=== PATIENT | female | born 1995 | race Caucasian/White ===

== ENCOUNTER 2020-10-29 14:13 | Emergency (ER) | payer OTHER, SELFPAY ==
--- NOTE | ~2020-10-29 | US_ITS ---
EXAMINATION: PELVIC ULTRASOUND CLINICAL INFORMATION: Pelvic pain with question of ovarian torsion COMPARISON: Prior pelvic ultrasound 08/11/2019 TECHNIQUE: Both transabdominal and endovaginal scanning was performed. Color-flow Doppler imaging was also utilized. FINDINGS: An anteverted uterus is present measuring 8.8 x 4.5 x 5 0.7 mL 4 a volume of 118 mL. The uterus appeared normal. The endometrium was 6 mm thick. The cervix measured 2.9 cm in length and nabothian cysts were again seen. Both ovaries appeared normal with normal arterial and venous flow bilaterally. The right measures 4.5 x 2.1 x 2.1 cm for a volume of 10.4 mL and the left measured 4.1 x 2.4 x 3.1 cm for a volume of 16.0 mL. No free fluid was present in the cul-de-sac. US/US pelvic complete IMPRESSION: Negative exam. No evidence of ovarian torsion.
--- NOTE | ~2020-10-29 | US_ITS ---
EXAMINATION: PELVIC ULTRASOUND CLINICAL INFORMATION: Pelvic pain with question of ovarian torsion COMPARISON: Prior pelvic ultrasound 08/11/2019 TECHNIQUE: Both transabdominal and endovaginal scanning was performed. Color-flow Doppler imaging was also utilized. FINDINGS: An anteverted uterus is present measuring 8.8 x 4.5 x 5 0.7 mL 4 a volume of 118 mL. The uterus appeared normal. The endometrium was 6 mm thick. The cervix measured 2.9 cm in length and nabothian cysts were again seen. Both ovaries appeared normal with normal arterial and venous flow bilaterally. The right measures 4.5 x 2.1 x 2.1 cm for a volume of 10.4 mL and the left measured 4.1 x 2.4 x 3.1 cm for a volume of 16.0 mL. No free fluid was present in the cul-de-sac. US/US transvaginal IMPRESSION: Negative exam. No evidence of ovarian torsion.
--- NOTE | ~2020-10-29 | US_ITS ---
EXAMINATION: PELVIC ULTRASOUND CLINICAL INFORMATION: Pelvic pain with question of ovarian torsion COMPARISON: Prior pelvic ultrasound 08/11/2019 TECHNIQUE: Both transabdominal and endovaginal scanning was performed. Color-flow Doppler imaging was also utilized. FINDINGS: An anteverted uterus is present measuring 8.8 x 4.5 x 5 0.7 mL 4 a volume of 118 mL. The uterus appeared normal. The endometrium was 6 mm thick. The cervix measured 2.9 cm in length and nabothian cysts were again seen. Both ovaries appeared normal with normal arterial and venous flow bilaterally. The right measures 4.5 x 2.1 x 2.1 cm for a volume of 10.4 mL and the left measured 4.1 x 2.4 x 3.1 cm for a volume of 16.0 mL. No free fluid was present in the cul-de-sac. US/US pelvic ovarian doppler IMPRESSION: Negative exam. No evidence of ovarian torsion.
[2020-10-29 14:23] VITALS: BP 104/66; PULSE 83; RESP 18; TEMP 36.8; O2SAT 100; BMI 30.8
--- NOTE | 2020-10-29 14:52 | ED_ITS ---
HPI - Abdominal Pain General Chief Complaint: Abdominal Pain Stated Complaint: low abd pain Time Seen by Provider: 10/29/20 14:41 Source: patient Mode of arrival: ambulatory Limitations: no limitations History of Present Illness HPI narrative: Patient presents to ED for suprapubic pain. Patient states she did not have a menstruation for 6 months then lastly she started having some vaginal bleeding with lower abdominal/suprapubic pain. Patient states vaginal bleeding resolved but she still having the lower abdominal/more suprapubic pain/pelvic pain. Patient denies any nausea, vomiting, flank pain, fever, chi lls, or any upper abdominal pain. Related Data Home Medications Medication Instructions Recorded Confirmed alprazolam 1 mg tablet 1 mg PO TID PRN 04/18/20 divalproex 500 mg tablet,delayed 500 mg PO ONCE tab 04/18/20 release quetiapine 100 mg tablet 100 mg PO DAILY 04/18/20 Previous Rx's Medication Instructions Recorded omeprazole 40 mg capsule,delayed 40 mg PO DAILY 30 Days #30 cap 08/01/20 release doxycycline hyclate 100 mg PO BID #14 tab 10/29/20 metronidazole 500 mg PO Q12H 7 Days #14 tab 10/29/20 Allergies Allergy/AdvReac Type Severity Reaction Status Date / Time No Known Allergies Allergy Verified 10/29/20 14:23 [No Known Allergies*] Review of Systems Review of Systems Yes all other systems are reviewed and are negative Constitutional: Reports as per HPI and Reports no additional constitutional complaints Eyes: Reports as per HPI and Reports no additional eye complaints Reports system reviewed and no additional complaints, except as documented and Reports as per HPI Cardiovascular: Reports as per HPI and Reports no additional cardiovascular complaints Respiratory: Reports as per HPI and Reports no additional respiratory complaints Gastrointestinal: Reports as per HPI, Reports no additional gastrointestinal complaints and Denies abdominal pain Genitourinary: Reports no additional female genitourinary complaints and Reports as per HPI Comments: Suprapubic Musculoskeletal: Reports no additional musculoskeletal complaints and Reports as per HPI Reports system reviewed and no additional complaints, except as documented and Reports as per HPI Psychiatric: Reports no additional psychiatric complaints and Reports as per HPI Physical Exam Vital Signs: Vital Signs: Last Vital Signs Temp 98.3 F 10/29/20 14:23 Pulse 83 10/29/20 14:23 Resp 18 10/29/20 14:23 BP 104/66 10/29/20 14:23 Pulse Ox 100 10/29/20 14:23 Body Mass Index 30.8 Const: General: cooperative, healthy appearing, comfortable, no acute distress, well developed, alert and awake Orientation/consciousness: patient oriented x3 HENMT: Head: Yes normal to inspection, Yes No palpable skull fracture present, Yes normocephalic, Yes atraumatic and No abrasion Eyes: General: appearance normal, both eyes and all related structures Neck: Neck: Yes normal visual inspection, Yes full ROM, Yes no lymphadenopathy, Yes no meningeal signs, Yes trachea midline, Yes supple and No tender Chest: Chest palpation & inspection: normal inspection of the chest and normal palpation of entire chest wall Resp: Effort & Inspection: normal respiratory effort and able to speak in complete sentences Auscultation: clear to auscultation bilaterally Cardio: Jugular venous distension: no JVD Heart sounds: S1 normal heart sound present and S2 normal heart sound present GI: Inspection: Yes normal to inspection and No abdominal wall ecchymosis Palpation (GI): Soft to palpation, not firm, Tenderness to palpation present (GI) suprapubicly; not in the LLQ, not in the RLQ, not in the LUQ, not in the RUQ, not at McBurney's point, not periumbilically, Coronado's sign negative, obturator sign negative, psoas sign negative, with no rebound tenderness, Rovsing's sign negative and no other, no guarding and not rigid : General: No CVA tenderness and Yes no CVA tenderness Back/Spine/Pelvis: Back: no CVA tenderness, No CVA tenderness and No back tenderness Skin: General skin exam: no rashes or lesions noted and elasticity normal Neuro: General: patient oriented x3, no meningeal signs and CN's II-XI intact bilaterally Cranial nerves: Yes CN's II-XII intact bilaterally Extrem: General: Yes normal to inspection and Yes full ROM Psych: Appearance: grossly normal, well kempt and not disheveled Course Course Course Narrative: Patient will have labs. Most likely this is the pelvic situation. Not concerned for any abdominal etiologies. S was sent UA. Reevaluation(s) Reevaluation #1: Patient not . Urine shows Trichomonas. Patient waiting for ultrasound to rule out torsion/abscess. Will treat Trichomonas. Patient refused pelvic exam. Patient was informed exam to be done to swab for chlamydia and gonorrhea, but she refused. Will order chlamydia gonorrhea urine and treat patient empirically. Patient sent for ultrasound to rule out torsion/abscess. Case will be signed out to SHELDON Ponce MDM - Abdominal Pain MDM Narrative Medical decision making narrative: Pelvic pain. Trichomonas Lab Data Result diagrams: 10/29/20 15:07 10/29/20 15:07 Labs: Lab Results 10/29/20 10/29/20 10/29/20 Range/Units 15:07 15:07 15:07 WBC 8.4 (4.8-10.8) X10*3/uL RBC 4.42 (4.20-5.50) X10*6/uL Hgb 13.1 (12.0-16.0) g/dl Hct 39.6 (37-47) % MCV 89.6 (80-98) fL MCH 29.6 (27.0-33.0) pg MCHC 33.1 (31.0-35.0) g/dl RDW 13.3 (11.0-16.0) % Plt Count 288 (160-400) X10*3/uL MPV 8.5 L (9.4-12.3) fL Immature Gran % (Auto) 0.2 (0.0-0.4) % Neut % (Auto) 60.1 (45-73) % Lymph % (Auto) 33.7 (20-40) % [place] % (Auto) 5.0 (2-11) % Eos % (Auto) 0.6 (0-4) % Baso % (Auto) 0.4 (0-2) % Lymph # (Auto) 2.8 (1.2-4.9) X10*3/uL [place] # (Auto) 0.4 (0.1-1.2) X10*3/uL Eos # (Auto) 0.1 (0.0-0.4) X10*3/uL Baso # (Auto) 0.0 (0.0-0.2) X10*3/uL Abs Immat Gran (auto) 0.02 (0.00-0.03) X10*3/uL Absolute Neuts (auto) 5.1 (2.0-8.3) X10*3/uL Absolute Nucleated RBC 0.000 (0.0-0.012) X10*3/uL Nucleated RBC % (auto) 0.0 (0.0-0.2) /100WBC PT 12.9 (10.8-13.0) SEC INR 1.1 (0.9-1.1) APTT 32.4 (24.1-38.0) SEC Sodium 143 (135-145) mmol/L Potassium 3.9 (3.3-5.1) mmol/L Chloride 108 (96-108) mmol/L Carbon Dioxide 29 (22-29) mmol/L Anion Gap 10 L (12-20) BUN 13 (9-16) mg/dL Creatinine 0.77 (0.5-1.4) mg/dL Estim Creat Clear Calc 139.9 Estimated GFR > 60 Random Glucose 76 (60-115) mg/dL Calcium 9.5 (8.4-10.2) mg/dL Total Bilirubin 0.5 (0.0-1.0) mg/dL AST 14 (5-31) U/L ALT 20 (0-31) U/L Alkaline Phosphatase 93 (39-117) U/L Total Protein 7.2 (6.5-8.0) g/dL Albumin 4.4 (3.5-5.0) g/dL Beta HCG, Quant < 2 mIU/mL Urine Color Urine Appearance Urine pH (5.0-8.0) Ur Specific [place] (1.005-1.025) Urine Protein (NEG-TRACE) MG/DL Urine Glucose (UA) (NEG) MG/DL Urine Ketones (NEG) MG/DL Urine Blood (NEG) Urine Nitrite (NEG) Ur Leukocyte Esterase (NEG) Urine RBC (0) /HPF Urine WBC (0-4) /HPF Ur Squamous Epith Cells /LPF Urine Bacteria /LPF Urine Mucus /LPF Urine Trichomonas 10/29/20 Range/Units 15:16 WBC (4.8-10.8) X10*3/uL RBC (4.20-5.50) X10*6/uL Hgb (12.0-16.0) g/dl Hct (37-47) % MCV (80-98) fL MCH (27.0-33.0) pg MCHC (31.0-35.0) g/dl RDW (11.0-16.0) % Plt Count (160-400) X10*3/uL MPV (9.4-12.3) fL Immature Gran % (Auto) (0.0-0.4) % Neut % (Auto) (45-73) % Lymph % (Auto) (20-40) % [place] % (Auto) (2-11) % Eos % (Auto) (0-4) % Baso % (Auto) (0-2) % Lymph # (Auto) (1.2-4.9) X10*3/uL [place] # (Auto) (0.1-1.2) X10*3/uL Eos # (Auto) (0.0-0.4) X10*3/uL Baso # (Auto) (0.0-0.2) X10*3/uL Abs Immat Gran (auto) (0.00-0.03) X10*3/uL Absolute Neuts (auto) (2.0-8.3) X10*3/uL Absolute Nucleated RBC (0.0-0.012) X10*3/uL Nucleated RBC % (auto) (0.0-0.2) /100WBC PT (10.8-13.0) SEC INR (0.9-1.1) APTT (24.1-38.0) SEC Sodium (135-145) mmol/L Potassium (3.3-5.1) mmol/L Chloride (96-108) mmol/L Carbon Dioxide (22-29) mmol/L Anion Gap (12-20) BUN (9-16) mg/dL Creatinine (0.5-1.4) mg/dL Estim Creat Clear Calc Estimated GFR Random Glucose (60-115) mg/dL Calcium (8.4-10.2) mg/dL Total Bilirubin (0.0-1.0) mg/dL AST (5-31) U/L ALT (0-31) U/L Alkaline Phosphatase (39-117) U/L Total Protein (6.5-8.0) g/dL Albumin (3.5-5.0) g/dL Beta HCG, Quant mIU/mL Urine Color YELLOW Urine Appearance CLEAR Urine pH 6.0 (5.0-8.0) Ur Specific [place] >= 1.030 H (1.005-1.025) Urine Protein NEG (NEG-TRACE) MG/DL Urine Glucose (UA) NEG (NEG) MG/DL Urine Ketones NEG (NEG) MG/DL Urine Blood TRACE (NEG) Urine Nitrite NEG (NEG) Ur Leukocyte Esterase NEG (NEG) Urine RBC 1-4 (0) /HPF Urine WBC 5-9 H (0-4) /HPF Ur Squamous Epith Cells 2+ /LPF Urine Bacteria NONE /LPF Urine Mucus 2+ /LPF Urine Trichomonas NOTED Discharge Plan Discharge Clinical Impression: Pelvic pain, Infection due to trichomonas Patient Disposition: Home, Self-Care Instructions: Trichomoniasis (ED), Pelvic Pain (ED) Additional Instructions: .Regrese al servicio de urgencias de inmediato si tiene flujo vaginal, sangrado vaginal, dolor abdominal intenso, dolor p?lvico intenso, dolor en el costado, fiebre, escalofr?os o cualquier otro s?ntoma preocupante. Benoit un seguimiento con khalil PCP Prescriptions: New metronidazole 500 mg tablet 500 mg PO Q12H 7 Days Qty: 14 RF: 0 doxycycline hyclate 100 mg tablet 100 mg PO BID Qty: 14 RF: 0 No Action divalproex [Depakote] 500 mg tablet,delayed release (DR/EC) 500 mg PO ONCE RF: 0 alprazolam [Xanax] 1 mg tablet 1 mg PO TID PRNRF: 0 quetiapine [Seroquel] 100 mg tablet 100 mg PO DAILY RF: 0 omeprazole 40 mg capsule,delayed release(DR/EC) 40 mg PO DAILY 30 Days Qty: 30 RF: 0 Print Language: Albanian [facility] Past Medical History Medical History (Updated 10/29/20 @ 17:05 by SHELDON Borges) GERD (gastroesophageal reflux disease) Polycystic disease, ovaries Surgical History History of section Family History Family History Father Diabetes Hypertension Mother Diabetes Hypertension Social History Social History Alcohol intake: never Smoking Status: Current every day smoker Cigarettes Per Day: 7 Use of substances other than those prescribed or required for medical reasons: Yes Substance Use Type: Marijuana Advance Directives: No Advance Directives Information Provided: No Patient : No
[2020-10-29 15:23] LABS: MANUAL DIFF FLAG NO
[2020-10-29 15:24] LABS: Basophils Percent Auto 0.4 % (0-2); Eosinophils Absolute Auto 0.1 X10*3/uL (0.0-0.4); Eosinophils Percent Auto 0.6 % (0-4); Hematocrit 39.6 % (37-47); Hemoglobin 13.1 g/dl (12.0-16.0); Imm Gran Abs Auto 0.02 X10*3/uL (0.00-0.03); Imm Gran Pct Auto 0.2 % (0.0-0.4); Lymphocytes Absolute Auto 2.8 X10*3/uL (1.2-4.9); Lymphocytes Percent Auto 33.7 % (20-40); Mean Corpuscular HGB Conc 33.1 g/dl (31.0-35.0); Mean Corpuscular Hemoglobin 29.6 pg (27.0-33.0); Mean Corpuscular Volume 89.6 fL (80-98); Mean Platelet Volume 8.5 fL (9.4-12.3); Monocytes Absolute Auto 0.4 X10*3/uL (0.1-1.2); Neutrophils Absolute Auto 5.1 X10*3/uL (2.0-8.3); Neutrophils Percent Auto 60.1 % (45-73); Platelet Count 288 X10*3/uL (160-400); Red Blood Count 4.42 X10*6/uL (4.20-5.50); Red Cell Distribution Width 13.3 % (11.0-16.0); White Blood Count 8.4 X10*3/uL (4.8-10.8)
[2020-10-29 15:37] LABS: Glucose Urine UA NEG (NEG); Leukocyte Esterase Urine NEG (NEG); Nitrite Urine NEG (NEG); Specific Gravity - Urine >= 1.030 (1.005-1.025); Urine Blood TRACE (NEG); Urine Ketones NEG (NEG); Urine Protein NEG (NEG-TRACE)
[2020-10-29 15:38] LABS: INTERNATIONAL NORM RATIO 1.1 (0.9-1.1); Prothrombin Time 12.9 SEC (10.8-13.0)
[2020-10-29] MEDS: 0.9 % Sodium Chloride 1,000 ML 999 ML IV (15:39)
[2020-10-29 15:41] LABS: Partial Thromboplastin Time 32.4 SEC (24.1-38.0)
[2020-10-29 15:44] LABS: Appearance Urine CLEAR; Color Urine YELLOW
[2020-10-29 15:54] LABS: Alanine Aminotransferase 20 U/L (0-31); Albumin Level 4.4 g/dL (3.5-5.0); Alkaline Phosphatase 93 U/L (39-117); Anion Gap 10 (12-20); Aspartate Amino Transferase 14 U/L (5-31); Bilirubin Total 0.5 mg/dL (0.0-1.0); Blood Urea Nitrogen 13 mg/dL (9-16); Calcium 9.5 mg/dL (8.4-10.2); Carbon Dioxide 29 mmol/L (22-29); Chloride 108 mmol/L (96-108); Creatinine Clr Calc Pharmacy 139.9; Estimated Glomerular Filt Rate > 60; Glucose Random 76 mg/dL (60-115); Potassium 3.9 mmol/L (3.3-5.1); Sodium 143 mmol/L (135-145); Total Protein 7.2 g/dL (6.5-8.0)
[2020-10-29 16:02] LABS: HCG Quantitative < 2 mIU/mL
[2020-10-29 16:07] LABS: Mucus Urine 2+ /LPF; Squamous Epithelial Cell Urine 2+ /LPF; UACC CULT YES
[2020-10-29 16:08] LABS: Trichomonas Urine NOTED
[2020-10-29] MEDS: cefTRIAXone sodium 500 MG, Lidocaine HCl 1 % MPF 1 ML IM (17:20)
[2020-10-29] MEDS: Ketorolac Tromethamine 30 MG/ML VIAL IVPUSH (17:23)
== END 2020-10-29 17:49 | disposition home or self-care (01) ==
PROVIDERS: Physician Assistant; Emergency Provider Emergency Medicine
DX: R10.10 Upper abdominal pain, unspecified (principal); A59.9 Trichomoniasis, unspecified; F17.210 Nicotine dependence, cigarettes, uncomplicated; Z71.6 Tobacco abuse counseling; Z79.899 Other long term (current) drug therapy
CPT/HCPCS: 36415; 76830; 76856; 80053; 81001; 84702; 85025; 85610; 85730; 87086; 93975; 96361; 96365; 96375; 99284; J0696; J1885

== ENCOUNTER 2020-12-21 12:57 | Emergency (ER) | payer OTHER, SELFPAY ==
[2020-12-21 13:20] VITALS: BP 113/65; PULSE 79; RESP 16; TEMP 36.3; O2SAT 100; BMI 28.7
[2020-12-21 14:16] LABS: IDNOW Serial# 9DD0AD1C; Strep A Nucleic Acid Positive (Negative)
--- NOTE | 2020-12-21 14:24 | ED_ITS ---
HPI - General Adult General Chief complaint: General Medical Stated complaint: sore throat headache Time Seen by Provider: 12/21/20 14:24 Source: patient Limitations: no limitations History of Present Illness HPI narrative: Patient is complaining of sore throat x4 days. Unknown sick contacts. Pain increases with swallowing. Positive tobacco history. No known history of COVID-19 exposure. pain 6/10. No nausea vomiting fever chills. Onset (ago): day(s) Related Data Home Medications Medication Instructions Recorded Confirmed alprazolam 1 mg tablet 1 mg PO TID PRN 04/18/20 11/14/20 divalproex 500 mg tablet,delayed 500 mg PO ONCE tab 04/18/20 11/14/20 release Previous Rx's Medication Instructions Recorded omeprazole 40 mg capsule,delayed 40 mg PO DAILY 30 Days #30 cap 08/01/20 release doxycycline hyclate 100 mg tablet 100 mg PO BID #14 tab 11/14/20 hydroxyzine HCl 25 mg tablet 50 mg PO BEDTIME 15 Days #30 tab 11/14/20 metronidazole 500 mg tablet 500 mg PO Q8H 7 Days #21 tab 11/14/20 nicotine 14 mg/24 hr daily 1 patch TRANSDERMAL DAILY 28 Days 11/14/20 transdermal patch #28 ea quetiapine 100 mg tablet 100 mg PO DAILY 30 Days #30 tab 11/14/20 amoxicillin 500 mg PO TID 10 Days #30 cap 12/21/20 Allergies Allergy/AdvReac Type Severity Reaction Status Date / Time No Known Allergies Allergy Verified 11/14/20 16:12 [No Known Allergies*] Review of Systems Constitutional: Constitutional: Denies chills and Denies fever(s) Eyes: Eyes: Denies eye discharge ENT: Denies post nasal drip, Denies sinus pain and Reports sore throat Cardiovascular: Cardiovascular: Denies chest pain and Denies dyspnea Respiratory: Respiratory: Denies chest congestion, Reports cough and Denies dyspnea Gastrointestinal: Gastrointestinal: Denies nausea and Denies vomiting Musculoskeletal: Musculoskeletal: Reports no additional musculoskeletal complaints Neurologic: Denies tremor(s) Hematologic/Lymphatic: Hematologic/Lymphatic: Reports no additional hematologic/lymphatic complaints [facility] Past Medical History Attestation statement: The following information was validated with the patient. Medical History GERD (gastroesophageal reflux disease) Polycystic disease, ovaries Surgical History History of section Family History Family History Father Diabetes Hypertension Mother Diabetes Hypertension Social History Social History Alcohol intake: never Patient Tobacco Use Status: Current everyday Tobacco user Tobacco use type: Cigarette Cigarettes Per Day: 10 Substance Use Type: Marijuana Advance Directives: No Advance Directives Information Provided: No Patient : No Physical Exam Vital Signs: Vital Signs: Last Vital Signs Temp 97.3 F 12/21/20 13:20 Pulse 79 12/21/20 13:20 Resp 16 12/21/20 13:20 BP 113/65 12/21/20 13:20 Pulse Ox 100 12/21/20 13:20 Body Mass Index 28.7 vital signs have been reviewed as normal and appeared to be correct. Blood pressure normal. Heart rate normal. Respiration rate normal. Temperature normal. Oxygen saturation normal. Appearance: Alert. Oriented X3. No acute distress. Head: Normal external exam. Normocephalic. Atraumatic. ENT: Oropharynx slight erythema noted no obvious exudate Uvula midline. Moist mucous membranes. No trismus noted. No drooling noted. No muffled voice noted. Neck: Soft full range of motion, no JVD CVS: Heart regular rate and rhythm no murmurs and rubs Respiratory: Breath sounds are clear to auscultation bilaterally. No accessory muscle use noted. Skin: Skin warm and dry. Normal skin color. Normal skin turgor. No rashes/lesions/lacerations noted. Extremities: No lower extremity edema. Extremities exhibit normal range of motion. Extremities nontender. Neuro: Oriented X 3. No motor deficit. No sensory deficit. Reflexes normal. Course Course Course Narrative: Acute pharyngitis URI Viral syndrome COVID-19 screening throat culture positive for strep group a Medical Decision Making Lab Data Labs: Lab Results 12/21/20 12/21/20 Range/Units 13:54 13:54 COVID-19 (MANDY) Negative (Negative) COVID-19 Clin Com See Note S. pyogenes GrpA SANTHOSH Positive A (Negative) Discharge Plan Discharge Clinical Impression: Acute bacterial pharyngitis Patient Disposition: Home, Self-Care Prescriptions: New amoxicillin 500 mg capsule 500 mg PO TID 10 Days Qty: 30 RF: 0 No Action divalproex [Depakote] 500 mg tablet,delayed release (DR/EC) 500 mg PO ONCE RF: 0 alprazolam [Xanax] 1 mg tablet 1 mg PO TID PRNRF: 0 omeprazole 40 mg capsule,delayed release(DR/EC) 40 mg PO DAILY 30 Days Qty: 30 RF: 0 quetiapine [Seroquel] 100 mg tablet 100 mg PO DAILY 30 Days Qty: 30 RF: 3 metronidazole 500 mg tablet 500 mg PO Q8H 7 Days Qty: 21 RF: 0 hydroxyzine HCl 25 mg tablet 50 mg PO BEDTIME 15 Days Qty: 30 RF: 1 nicotine 14 mg/24 hr patch 24 hour 1 patch transdermal DAILY 28 Days Qty: 28 RF: 0 doxycycline hyclate 100 mg tablet 100 mg PO BID Qty: 14 RF: 0
[2020-12-21 14:26] LABS: COVID-19 Test Negative (Negative)
== END 2020-12-21 15:00 | disposition home or self-care (01) ==
LOC: HO.ED 14:33
PROVIDERS: Emergency Provider Emergency Medicine Emergency Medical Services
DX: J02.8 Acute pharyngitis due to other specified organisms (principal); Z20.822 Contact with and (suspected) exposure to COVID-19
CPT/HCPCS: 36415; 87635; 87651; 99283

== ENCOUNTER 2021-03-05 07:52 | Outpatient (REF) | payer OTHER, SELFPAY ==
[2021-03-05 09:06] LABS: Alanine Aminotransferase 20 U/L (0-31); Albumin Level 4.2 g/dL (3.5-5.0); Alkaline Phosphatase 84 U/L (39-117); Anion Gap 12 (12-20); Aspartate Amino Transferase 15 U/L (5-31); Bilirubin Total 0.4 mg/dL (0.0-1.0); Blood Urea Nitrogen 10 mg/dL (9-16); Calcium 9.2 mg/dL (8.4-10.2); Carbon Dioxide 26 mmol/L (22-29); Chloride 107 mmol/L (96-108); Cholesterol 161 mg/dL; Estimated Glomerular Filt Rate > 60; Glucose Fasting 89 mg/dL (60-99); HDL Cholesterol 39 mg/dL; LDL Cholesterol Calculated 105 mg/dl; Sodium 141 mmol/L (135-145); Total Protein 6.7 g/dL (6.5-8.0); Triglycerides 86 mg/dL
[2021-03-05 09:29] LABS: TSH reflex Free T4 3.46 uIU/mL (0.32-4.0)
[2021-03-05 09:50] LABS: Estimated Average Glucose 100 mg/dL; Hemoglobin A1c % 5.1 %
== END 2021-03-05 07:53 | disposition home or self-care (01) ==
LOC: HO.LAB 07:52
PROVIDERS: PCP Physician Assistant; Visit Provider Physician Assistant
DX: Z13.220 Encounter for screening for lipoid disorders (principal); Z13.29 Encounter for screening for other suspected endocrine disorder
CPT/HCPCS: 36415; 80053; 80061; 83036; 84443

== ENCOUNTER 2021-03-11 12:03 | Emergency (ER) | payer OTHER, SELFPAY ==
[2021-03-11 12:18] VITALS: BP 140/80; PULSE 61; RESP 16; TEMP 36.2; O2SAT 98; BMI 29.0
[2021-03-11 12:46] LABS: MANUAL DIFF FLAG NO
[2021-03-11 12:47] LABS: Basophils Percent Auto 0.2 % (0-2); Eosinophils Absolute Auto 0.1 X10*3/uL (0.0-0.4); Eosinophils Percent Auto 0.6 % (0-4); Hematocrit 41.5 % (37-47); Hemoglobin 13.5 g/dl (12.0-16.0); Imm Gran Abs Auto 0.03 X10*3/uL (0.00-0.03); Imm Gran Pct Auto 0.3 % (0.0-0.4); Lymphocytes Absolute Auto 2.2 X10*3/uL (1.2-4.9); Mean Corpuscular HGB Conc 32.5 g/dl (31.0-35.0); Mean Corpuscular Hemoglobin 29.7 pg (27.0-33.0); Mean Corpuscular Volume 91.2 fL (80-98); Mean Platelet Volume 8.3 fL (9.4-12.3); Monocytes Absolute Auto 0.5 X10*3/uL (0.1-1.2); Monocytes Percent Auto 5.2 % (2-11); Neutrophils Absolute Auto 6.1 X10*3/uL (2.0-8.3); Neutrophils Percent Auto 68.7 % (45-73); Platelet Count 317 X10*3/uL (160-400); Red Blood Count 4.55 X10*6/uL (4.20-5.50); Red Cell Distribution Width 13.5 % (11.0-16.0); White Blood Count 8.9 X10*3/uL (4.8-10.8)
[2021-03-11 13:03] LABS: COVID-19 Test Negative (Negative); IDNOW Serial# 9DD0AD1C
[2021-03-11 13:06] LABS: Alanine Aminotransferase 20 U/L (0-31); Albumin Level 4.5 g/dL (3.5-5.0); Alkaline Phosphatase 97 U/L (39-117); Anion Gap 12 (12-20); Aspartate Amino Transferase 14 U/L (5-31); Bilirubin Direct 0.2 mg/dL (0.0-0.5); Bilirubin Total 0.4 mg/dL (0.0-1.0); Blood Urea Nitrogen 10 mg/dL (9-16); Calcium 9.8 mg/dL (8.4-10.2); Carbon Dioxide 27 mmol/L (22-29); Chloride 106 mmol/L (96-108); Creatinine Clr Calc Pharmacy 131.6; Estimated Glomerular Filt Rate > 60; Glucose Random 96 mg/dL (60-115); Lipase 7 U/L (8-78); Potassium 4.3 mmol/L (3.3-5.1); Sodium 141 mmol/L (135-145); Total Protein 7.3 g/dL (6.5-8.0)
--- NOTE | 2021-03-11 15:03 | ED.NAVMDI ---
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 Also feels some upper abdominal discomfort. No vomiting, diarrhea, constipation, urinary symptoms, fevers or chills. Last menstrual cycle was January 22. Patient is currently sexually active. Not on contraception Associated nausea: Yes Related Data Previous Rx's Medication Instructions Recorded hydroxyzine HCl 25 mg tablet 50 mg PO BEDTIME 15 Days #30 tab 11/14/20 metronidazole 500 mg tablet 500 mg PO Q8H 7 Days #21 tab 11/14/20 alprazolam 1 mg tablet (Xanax) 1 mg PO DAILY PRN 7 Days #7 tab 02/27/21 divalproex 500 mg tablet,delayed 500 mg PO ONCE 30 Days #30 tab 02/27/21 release (Depakote) nicotine 14 mg/24 hr daily 1 patch TRANSDERMAL DAILY 28 Days 02/27/21 transdermal patch #28 ea omeprazole 40 mg capsule,delayed 40 mg PO DAILY 30 Days #30 cap 02/27/21 release quetiapine 100 mg tablet (Seroquel) 100 mg PO DAILY 30 Days #30 tab 02/27/21 famotidine 40 mg tablet 40 mg PO DAILY #30 tab 03/11/21 ondansetron 4 mg disintegrating 4 mg PO Q6H PRN #10 tab 03/11/21 tablet Allergies Allergy/AdvReac Type Severity Reaction Status Date / Time No Known Allergies Allergy Verified 02/27/21 16:39 [No Known Allergies*] Review of Systems Review of Systems: Yes all other systems are reviewed and are negative Constitutional: Constitutional: Reports no additional constitutional complaints, Denies body ache(s), Denies chills, Denies fever(s), Denies headache(s) and Denies weakness Eyes: Eyes: Reports no additional eye complaints and Denies change in vision ENT: Reports system reviewed and no additional complaints, except as documented, Denies dizziness, Denies headache(s), Denies nasal congestion, Denies nasal discharge and Denies neck pain Cardiovascular: Cardiovascular: Reports no additional cardiovascular complaints, Denies chest pain, Denies leg edema and Denies dyspnea Respiratory: Respiratory: Reports no additional respiratory complaints, Denies cough and Denies dyspnea Gastrointestinal: Gastrointestinal: Reports no additional gastrointestinal complaints, Denies abdominal pain, Denies diarrhea, Reports nausea and Denies vomiting Genitourinary: Genitourinary: Reports no additional female genitourinary complaints and Denies urinary incontinence Musculoskeletal: Musculoskeletal: Reports no additional musculoskeletal complaints, Denies back pain, Denies arthralgias, Denies joint swelling, Denies neck pain, Denies numbness and Denies tingling Integumentary/Breasts: Skin/Breast: Reports system reviewed and no additional complaints, except as docu and Denies rash Neurologic: Reports system reviewed and no additional complaints, except as documented, Denies Abnormal speech present, Denies dizziness, Denies headache(s), Denies numbness, Denies tingling and Denies weakness PMFSH Past Medical History Attestation statement: The following information was validated with the patient. Source: old records reviewed and nursing notes reviewed Medical History GERD (gastroesophageal reflux disease) Polycystic disease, ovaries Surgical History History of section Family History Family History Father Diabetes Hypertension Mother Diabetes Hypertension Social History Social History Housing: Homeless Alcohol intake: never Patient Tobacco Use Status: Current everyday Tobacco user Tobacco use type: Cigarette Cigarettes Per Day: 10 Substance Use Type: Marijuana Advance Directives: No Advance Directives Information Provided: No service: No Current occupational status: unemployed Physical Exam Vital Signs: Vital Signs: Last Vital Signs Temp 98.4 F 03/11/21 15:21 Pulse 66 03/11/21 15:21 Resp 16 03/11/21 12:18 BP 118/79 03/11/21 15:21 Pulse Ox 100 03/11/21 15:21 Body Mass Index 29.0 Const: General: cooperative, healthy appearing, comfortable and no acute distress Orientation/consciousness: patient oriented x3 Limitations: no limitations HENMT: Head: Yes normal to inspection Ears: hearing grossly normal bilaterally General nose exam: Normal external nose present Face and sinus: Yes normal facial exam Mouth: Normal oral and palatal mucosa present Throat: Yes posterior oropharynx normal Eyes: General: appearance normal, both eyes and all related structures Pupils: Equal, round and reactive pupils present Neck: Neck: Yes normal visual inspection Chest: Chest palpation & inspection: normal inspection of the chest Resp: Effort & Inspection: normal respiratory effort Auscultation: clear to auscultation bilaterally Cardio: Rate: regular rate Rhythm: regular rhythm Peripheral pulses: Peripheral pulses 2+ throughout GI: Inspection: Yes normal to inspection Palpation (GI): Soft to palpation and nontender Auscultation: normal bowel sounds Back/Spine/Pelvis: Thoracic/Lumbar Spine: thoracic and lumbar spine normal to inspection Skin: General skin exam: no rashes or lesions noted Neuro: General: patient oriented x3, no focal motor deficits and normal sensation to monofilament Cranial nerves: Yes Equal, round and reactive pupils present Cognition (Neuro): normal cognition Speech: No Abnormal speech present Gait exam (Neuro): Normal gait present Motor exam (neuro): 5/5 motor strength present throughout Extrem: General: Yes normal to inspection Course Course Course Narrative: 25-year-old female here with complaints of nausea for the last few days worsened in the morning some upper abdominal discomfort. No focal abdominal pain on exam. Patient is late for her menses. She is sexually active and not on contraception. Will check labs, UA, urine . Give Zofran sublingual and reassess 1640-labs and urine negative.? GERD. Patient tells me she has history of same minute feel similar. She tells me she had been recommended take Prilosec that the pills are too big for her to swallow so she has been noncompliant with this. Tolerating p.o. in the emergency department. No vomiting. Will start on famotidine as this is a smaller tablet in the patient is able to swallow. We discussed GERD diet. Reviewed worrisome signs and symptoms and when to return to the emergency department. Comfortable discharge home. MDM - Nausea/Vomiting/Diarrhea Medical Records Attestation: I reviewed the patient's medical records. Lab Data Attestation: I reviewed the patient's lab results. Result diagrams: 03/11/21 12:35 03/11/21 12:35 Labs: Lab Results 0903/11/21 03/11/21 Range/Units 12:35 12:35 12:35 WBC 8.9 (4.8-10.8) X10*3/uL RBC 4.55 (4.20-5.50) X10*6/uL Hgb 13.5 (12.0-16.0) g/dl Hct 41.5 (37-47) % MCV 91.2 (80-98) fL MCH 29.7 (27.0-33.0) pg MCHC 32.5 (31.0-35.0) g/dl RDW 13.5 (11.0-16.0) % Plt Count 317 (160-400) X10*3/uL MPV 8.3 L (9.4-12.3) fL Immature Gran % (Auto) 0.3 (0.0-0.4) % Neut % (Auto) 68.7 (45-73) % Lymph % (Auto) 25.0 (20-40) % [place] % (Auto) 5.2 (2-11) % Eos % (Auto) 0.6 (0-4) % Baso % (Auto) 0.2 (0-2) % Lymph # (Auto) 2.2 (1.2-4.9) X10*3/uL [place] # (Auto) 0.5 (0.1-1.2) X10*3/uL Eos # (Auto) 0.1 (0.0-0.4) X10*3/uL Baso # (Auto) 0.0 (0.0-0.2) X10*3/uL Abs Immat Gran (auto) 0.03 (0.00-0.03) X10*3/uL Absolute Neuts (auto) 6.1 (2.0-8.3) X10*3/uL Absolute Nucleated RBC 0.000 (0.0-0.012) X10*3/uL Nucleated RBC % (auto) 0.0 (0.0-0.2) /100WBC Sodium 141 (135-145) mmol/L Potassium 4.3 (3.3-5.1) mmol/L Chloride 106 (96-108) mmol/L Carbon Dioxide 27 (22-29) mmol/L Anion Gap 12 (12-20) BUN 10 (9-16) mg/dL Creatinine 0.82 (0.5-1.4) mg/dL Estim Creat Clear Calc 131.6 Estimated GFR > 60 Random Glucose 96 (60-115) mg/dL Calcium 9.8 D (8.4-10.2) mg/dL Total Bilirubin 0.4 (0.0-1.0) mg/dL Direct Bilirubin 0.2 (0.0-0.5) mg/dL AST 14 (5-31) U/L ALT 20 (0-31) U/L Alkaline Phosphatase 97 (39-117) U/L Total Protein 7.3 (6.5-8.0) g/dL Albumin 4.5 (3.5-5.0) g/dL Lipase 7 L (8-78) U/L Beta HCG, Quant < 2 mIU/mL Urine Color Urine Appearance Urine pH (5.0-8.0) Ur Specific [place] (1.005-1.025) Urine Protein (NEG-TRACE) MG/DL Urine Glucose (UA) (NEG) MG/DL Urine Ketones (NEG) MG/DL Urine Blood (NEG) Urine Nitrite (NEG) Ur Leukocyte Esterase (NEG) Urine RBC (0) /HPF Urine WBC (0-4) /HPF Ur Squamous Epith Cells /LPF Urine Bacteria /LPF Urine Mucus /LPF Urine Test (NEGATIVE) COVID-19 (MANDY) Negative (Negative) COVID-19 Clin Com See Note 03/11/21 03/11/21 Range/Units 15:03 15:03 WBC (4.8-10.8) X10*3/uL RBC (4.20-5.50) X10*6/uL Hgb (12.0-16.0) g/dl Hct (37-47) % MCV (80-98) fL MCH (27.0-33.0) pg MCHC (31.0-35.0) g/dl RDW (11.0-16.0) % Plt Count (160-400) X10*3/uL MPV (9.4-12.3) fL Immature Gran % (Auto) (0.0-0.4) % Neut % (Auto) (45-73) % Lymph % (Auto) (20-40) % [place] % (Auto) (2-11) % Eos % (Auto) (0-4) % Baso % (Auto) (0-2) % Lymph # (Auto) (1.2-4.9) X10*3/uL [place] # (Auto) (0.1-1.2) X10*3/uL Eos # (Auto) (0.0-0.4) X10*3/uL Baso # (Auto) (0.0-0.2) X10*3/uL Abs Immat Gran (auto) (0.00-0.03) X10*3/uL Absolute Neuts (auto) (2.0-8.3) X10*3/uL Absolute Nucleated RBC (0.0-0.012) X10*3/uL Nucleated RBC % (auto) (0.0-0.2) /100WBC Sodium (135-145) mmol/L Potassium (3.3-5.1) mmol/L Chloride (96-108) mmol/L Carbon Dioxide (22-29) mmol/L Anion Gap (12-20) BUN (9-16) mg/dL Creatinine (0.5-1.4) mg/dL Estim Creat Clear Calc Estimated GFR Random Glucose (60-115) mg/dL Calcium (8.4-10.2) mg/dL Total Bilirubin (0.0-1.0) mg/dL Direct Bilirubin (0.0-0.5) mg/dL AST (5-31) U/L ALT (0-31) U/L Alkaline Phosphatase (39-117) U/L Total Protein (6.5-8.0) g/dL Albumin (3.5-5.0) g/dL Lipase (8-78) U/L Beta HCG, Quant mIU/mL Urine Color YELLOW Urine Appearance HAZY Urine pH 6.0 (5.0-8.0) Ur Specific [place] 1.025 (1.005-1.025) Urine Protein NEG (NEG-TRACE) MG/DL Urine Glucose (UA) NEG (NEG) MG/DL Urine Ketones NEG (NEG) MG/DL Urine Blood TRACE (NEG) Urine Nitrite NEG (NEG) Ur Leukocyte Esterase NEG (NEG) Urine RBC 1-4 (0) /HPF Urine WBC 0-2 (0-4) /HPF Ur Squamous Epith Cells 2+ /LPF Urine Bacteria NONE /LPF Urine Mucus 2+ /LPF Urine Test NEGATIVE (NEGATIVE) COVID-19 (MANDY) (Negative) COVID-19 Clin Com Discharge Plan Discharge Clinical Impression: GERD (gastroesophageal reflux disease) Patient Disposition: Home, Self-Care Instructions: Gastroesophageal Reflux Disease (ED) Additional Instructions: [place] diet After eating stay sitting up for 30 minutes Do not eat 3 hours prior to sleeping Prescriptions: New famotidine 40 mg tablet 40 mg PO DAILY Qty: 30 RF: 0 ondansetron 4 mg tablet,disintegrating 4 mg PO Q6H PRN (Reason: nausea and vomiting) Qty: 10 RF: 0 No Action metronidazole 500 mg tablet 500 mg PO Q8H 7 Days Qty: 21 RF: 0 hydroxyzine HCl 25 mg tablet 50 mg PO BEDTIME 15 Days Qty: 30 RF: 1 quetiapine [Seroquel] 100 mg tablet 100 mg PO DAILY 30 Days Qty: 30 RF: 3 divalproex [Depakote] 500 mg tablet,delayed release (DR/EC) 500 mg PO ONCE 30 Days Qty: 30 RF: 3 alprazolam [Xanax] 1 mg tablet 1 mg PO DAILY PRN (Reason: anxiety) 7 Days Qty: 7 RF: 0 omeprazole 40 mg capsule,delayed release(DR/EC) 40 mg PO DAILY 30 Days Qty: 30 RF: 3 nicotine 14 mg/24 hr patch 24 hour 1 patch transdermal DAILY 28 Days Qty: 28 RF: 0 Referrals: Ron Kumar PA-C [Primary Care Provider] - 2 days Interventions: ED Discharge Assessment Last Done: 03/11/21 16:22 Discharge Date/Time: 03/11/21 16:23 Print Language: [place] Citizen
[2021-03-11] MEDS: Ondansetron ODT 4 MG TAB.RAPDIS TRANSLINGU (15:13)
--- NOTE | 2021-03-11 15:14 | PC.NURSE ---
PT WAS SEEN BY SUSANA MARTINES AND MADE AWARE OF CARE PLAN. SHE WAS MEDICATED FOR NAUSEA WITHOUT PRESENCE OF VOMITING.
[2021-03-11 15:15] LABS: UPreg QC Valid YES; Urine Pregnancy NEGATIVE (NEGATIVE)
[2021-03-11 15:21] VITALS: BP 118/79; PULSE 66; TEMP 36.9; O2SAT 100
[2021-03-11 15:22] LABS: Appearance Urine HAZY; Color Urine YELLOW; Glucose Urine UA NEG (NEG); Nitrite Urine NEG (NEG); Specific Gravity - Urine 1.025 (1.005-1.025); Urine Blood TRACE (NEG); Urine Ketones NEG (NEG); Urine Protein NEG (NEG-TRACE)
[2021-03-11 15:23] LABS: Leukocyte Esterase Urine NEG (NEG); UACC Culture Trigger NO
[2021-03-11 15:34] LABS: Mucus Urine 2+ /LPF; Squamous Epithelial Cell Urine 2+ /LPF; WBC Urine 0-2 /HPF (0-4)
[2021-03-11 15:43] LABS: HCG Quantitative < 2 mIU/mL
== END 2021-03-11 16:23 | disposition home or self-care (01) ==
PROVIDERS: Nurse Practitioner Family; Emergency Provider Emergency Medicine Emergency Medical Services; PCP Physician Assistant
DX: K21.9 Gastro-esophageal reflux disease without esophagitis (principal); R11.2 Nausea with vomiting, unspecified; Z20.822 Contact with and (suspected) exposure to COVID-19; F17.210 Nicotine dependence, cigarettes, uncomplicated; Z71.6 Tobacco abuse counseling; F12.90 Cannabis use, unspecified, uncomplicated; Z79.899 Other long term (current) drug therapy
CPT/HCPCS: 36415; 80048; 80076; 81001; 81025; 83690; 84702; 85025; 87635; 99283; 99284

== ENCOUNTER 2021-03-31 14:34 | Emergency (ER) | payer OTHER, SELFPAY ==
[2021-03-31 15:24] VITALS: BP 111/61; PULSE 68; RESP 16; TEMP 36.6; O2SAT 98; BMI 21.5
--- NOTE | 2021-03-31 17:50 | ED.NECK ---
HPI - Neck Pain/Injury General Chief Complaint: Neck Pain/Injury Stated Complaint: head ,neck, chest pain Time Seen by Provider: 03/31/21 16:17 Source: patient Mode of arrival: ambulatory Limitations: no limitations Related Data Previous Rx's Medication Instructions Recorded hydroxyzine HCl 25 mg tablet 50 mg PO BEDTIME 15 Days #30 tab 11/14/20 metronidazole 500 mg tablet 500 mg PO Q8H 7 Days #21 tab 11/14/20 alprazolam 1 mg tablet (Xanax) 1 mg PO DAILY PRN 7 Days #7 tab 02/27/21 divalproex 500 mg tablet,delayed 500 mg PO ONCE 30 Days #30 tab 02/27/21 release (Depakote) nicotine 14 mg/24 hr daily 1 patch TRANSDERMAL DAILY 28 Days 02/27/21 transdermal patch #28 ea omeprazole 40 mg capsule,delayed 40 mg PO DAILY 30 Days #30 cap 02/27/21 release quetiapine 100 mg tablet (Seroquel) 100 mg PO DAILY 30 Days #30 tab 02/27/21 famotidine 40 mg tablet 40 mg PO DAILY #30 tab 03/11/21 ondansetron 4 mg disintegrating 4 mg PO Q6H PRN #10 tab 03/11/21 tablet Allergies Allergy/AdvReac Type Severity Reaction Status Date / Time No Known Allergies Allergy Verified 02/27/21 16:39 [No Known Allergies*] COUNTS INCLUDE 234 BEDS AT THE [facility] Past Medical History Medical History GERD (gastroesophageal reflux disease) Polycystic disease, ovaries Surgical History History of section Family History Family History Father Diabetes Hypertension Mother Diabetes Hypertension Social History Social History Housing: Homeless Alcohol intake: never Patient Tobacco Use Status: Current everyday Tobacco user Tobacco use type: Cigarette Cigarettes Per Day: 10 Substance Use Type: Marijuana service: No Current occupational status: unemployed Physical Exam Vital Signs: Vital Signs: Last Vital Signs Temp 97.9 F 03/31/21 15:24 Pulse 68 03/31/21 15:24 Resp 16 03/31/21 15:24 BP 111/61 03/31/21 15:24 Pulse Ox 98 03/31/21 15:24 Body Mass Index 21.5 Discharge Plan Discharge Prescriptions: No Action famotidine 40 mg tablet 40 mg PO DAILY Qty: 30 RF: 0 ondansetron 4 mg tablet,disintegrating 4 mg PO Q6H PRN (Reason: nausea and vomiting) Qty: 10 RF: 0 metronidazole 500 mg tablet 500 mg PO Q8H 7 Days Qty: 21 RF: 0 hydroxyzine HCl 25 mg tablet 50 mg PO BEDTIME 15 Days Qty: 30 RF: 1 quetiapine [Seroquel] 100 mg tablet 100 mg PO DAILY 30 Days Qty: 30 RF: 3 divalproex [Depakote] 500 mg tablet,delayed release (DR/EC) 500 mg PO ONCE 30 Days Qty: 30 RF: 3 alprazolam [Xanax] 1 mg tablet 1 mg PO DAILY PRN (Reason: anxiety) 7 Days Qty: 7 RF: 0 omeprazole 40 mg capsule,delayed release(DR/EC) 40 mg PO DAILY 30 Days Qty: 30 RF: 3 nicotine 14 mg/24 hr patch 24 hour 1 patch transdermal DAILY 28 Days Qty: 28 RF: 0
== END 2021-03-31 20:19 | disposition left against medical advice (07) ==
PROVIDERS: Emergency Provider Emergency Medicine; PCP Physician Assistant
DX: M54.2 Cervicalgia (principal); R51.9 Headache, unspecified
CPT/HCPCS: 99281; 99282

== ENCOUNTER 2021-04-09 12:59 | Outpatient (REF) | payer OTHER, SELFPAY ==
[2021-04-10 05:16] LABS: CT PCR NOT DETECTED (Not Detect.); NG PCR NOT DETECTED (Not Detect.)
== END 2021-04-09 13:00 | disposition home or self-care (01) ==
LOC: HO.LAB 12:59
PROVIDERS: PCP Physician Assistant; Visit Provider Obstetrics & Gynecology
DX: Z30.09 Encounter for other general counseling and advice on contraception (principal); N93.9 Abnormal uterine and vaginal bleeding, unspecified
CPT/HCPCS: 87491; 87591; 88142; 99202

== ENCOUNTER 2021-05-10 13:47 | Outpatient (REF) | payer OTHER, SELFPAY ==
--- NOTE | ~2021-05-10 | US_ITS ---
EXAMINATION: US PELVIS CLINICAL INFORMATION: Abnormal uterine and vaginal bleeding COMPARISON: Previous exam October 2020 TECHNIQUE: Ultrasound of the pelvis is performed using both transabdominal and transvaginal transducers along with Doppler. Transvaginal imaging is performed due to inadequate visualization transabdominally. FINDINGS: The uterus is anteverted and retroflexed and measures 11.7 x 5.4 x 6.3 cm in dimension. No focal uterine lesion is seen. Endometrial thickness is normal measuring 1 cm. There are nabothian cysts in the cervix. The ovaries are normal-appearing. The right ovary measures 4.4 x 2.4 x 2.1 cm in dimension. The left ovary is upper normal in size and measures 3.3 x 3.3 x 3.2 cm, volume 18 mL. There is a small amount of fluid in the pelvis. US/US pelvic and transvaginal IMPRESSION: Unremarkable exam.
== END 2021-05-10 13:48 | disposition home or self-care (01) ==
LOC: HO.US 13:47
PROVIDERS: Visit Provider Obstetrics & Gynecology
DX: N93.9 Abnormal uterine and vaginal bleeding, unspecified (principal)
CPT/HCPCS: 76830; 76856

== ENCOUNTER → 2021-05-21 12:04 | Outpatient (BNVA) | payer OTHER, SELFPAY | PROVIDERS: PCP Physician Assistant; Visit Provider Obstetrics & Gynecology | DX: Z34.90 Encounter for supervision of normal pregnancy, unspecified, unspecified trimester (principal) | CPT/HCPCS: 81025; 99212 ==

== ENCOUNTER 2021-05-21 15:10 | Outpatient (REF) | payer OTHER, SELFPAY ==
--- NOTE | ~2021-05-21 | US_ITS ---
EXAMINATION: US OBSTETRICAL ULTRASOUND CLINICAL INFORMATION: Supervision of normal . History of 3 months of amenorrhea. COMPARISON: Ultrasound pelvis 05/10/2021 LMP: 01/22/2021. Gestational age by maternal dates is not available. Estimated date of delivery by maternal dates is not available. TECHNIQUE: Transabdominal and transvaginal imaging of pelvis was performed. FINDINGS: The uterus is retroverted with an endometrial thickness of 1.04 cm. No intrauterine gestational sac, pole or yolk sac seen. There is a subtle anechoic area seen within lower endometrial canal measuring 0.48 x 0.22 cm. Whether this represents an endometrial cyst or a small gestational sac is not readily identifiable. There are small nabothian cysts seen in the cervix. Right ovary measures 2.5 x 2.4 x 1.8 cm and appears unremarkable. Left ovary measures 4.3 x 3.0 x 3.8 cm. There is a small anechoic cyst measuring 3.1 x 2.3 x 2.9 cm. There is no free fluid in the cul-de-sac. US/US OB <= 14 weeks fetus IMPRESSION: There is a subtle hypoechoic area in the distal endometrial canal. Question of endometrial cyst versus a small early gestational sac. No definite pole or yolk sac seen. Left ovarian simple cyst measuring 3.1 cm. Small nabothian cysts seen in the cervix.
[2021-05-21 16:11] LABS: HCG Quantitative 323 mIU/mL
== END 2021-05-21 15:11 | disposition home or self-care (01) ==
LOC: HO.US 15:10
PROVIDERS: Visit Provider Obstetrics & Gynecology
DX: Z34.90 Encounter for supervision of normal pregnancy, unspecified, unspecified trimester (principal); Z36.87 Encounter for antenatal screening for uncertain dates
CPT/HCPCS: 36415; 76801; 84702

== ENCOUNTER 2021-05-23 14:16 | Outpatient (REF) | payer OTHER, SELFPAY ==
[2021-05-23 15:00] LABS: Hematocrit 36.3 % (37.0-47.0); Hemoglobin 12.1 g/dl (12.0-16.0); Mean Corpuscular HGB Conc 33.3 g/dl (31.0-35.0); Mean Corpuscular Volume 90.1 fL (80.0-98.0); Mean Platelet Volume 8.3 fL (9.4-12.3); Platelet Count 304 X10*3/uL (160-400); Red Blood Count 4.03 X10*6/uL (4.20-5.50); Red Cell Distribution Width 13.5 % (11.0-16.0); White Blood Count 11.5 X10*3/uL (4.8-10.8)
[2021-05-23 15:58] LABS: TSH reflex Free T4 1.05 uIU/mL (0.32-4.0)
[2021-05-23 16:17] LABS: HCG Quantitative 762 mIU/mL
[2021-05-24 02:40] LABS: CT PCR NOT DETECTED (Not Detect.); NG PCR NOT DETECTED (Not Detect.)
[2021-05-26 00:52] LABS: Prolactin 11.4 ng/mL
== END 2021-05-23 14:17 | disposition home or self-care (01) ==
LOC: HO.LAB 14:16
PROVIDERS: PCP Physician Assistant; Visit Provider Obstetrics & Gynecology
DX: Z34.90 Encounter for supervision of normal pregnancy, unspecified, unspecified trimester (principal)
CPT/HCPCS: 36415; 84146; 84443; 84702; 85027; 87491; 87591; 99212

== ENCOUNTER 2021-05-25 12:23 | Outpatient (REF) | payer OTHER, SELFPAY ==
[2021-05-25 12:34] LABS: MANUAL DIFF FLAG NO
[2021-05-25 13:31] LABS: Basophils Percent Auto 0.3 % (0-2); Eosinophils Percent Auto 0.4 % (0-4); Hematocrit 36.8 % (37.0-47.0); Hemoglobin 12.1 g/dl (12.0-16.0); Imm Gran Abs Auto 0.04 X10*3/uL (0.00-0.03); Imm Gran Pct Auto 0.4 % (0.0-0.4); Lymphocytes Absolute Auto 2.9 X10*3/uL (1.2-4.9); Lymphocytes Percent Auto 28.4 % (20-40); Mean Corpuscular HGB Conc 32.9 g/dl (31.0-35.0); Mean Corpuscular Hemoglobin 29.5 pg (27.0-33.0); Mean Corpuscular Volume 89.8 fL (80.0-98.0); Mean Platelet Volume 8.6 fL (9.4-12.3); Monocytes Absolute Auto 0.6 X10*3/uL (0.1-1.2); Monocytes Percent Auto 5.8 % (2-11); Neutrophils Absolute Auto 6.6 x10*3/uL (2.0-8.3); Neutrophils Percent Auto 64.7 % (45-73); Platelet Count 323 X10*3/uL (160-400); Red Cell Distribution Width 13.5 % (11.0-16.0); White Blood Count 10.3 X10*3/uL (4.8-10.8)
[2021-05-25 13:56] LABS: Anion Gap 12 (12-20); Blood Urea Nitrogen 11 mg/dL (9-16); Calcium 9.6 mg/dL (8.4-10.2); Carbon Dioxide 25 mmol/L (22-29); Chloride 106 mmol/L (96-108); Estimated Glomerular Filt Rate > 60; Glucose Fasting 85 mg/dL (60-99); Potassium 3.7 mmol/L (3.3-5.1); Sodium 139 mmol/L (135-145)
[2021-05-25 14:02] LABS: Estimated Average Glucose 94 mg/dL; Hemoglobin A1c % 4.9 %
[2021-05-25 14:03] LABS: HCG Quantitative 2004 mIU/mL
[2021-05-30 11:06] LABS: Testosterone, Total 96 ng/dL (2-45)
== END 2021-05-25 12:24 | disposition home or self-care (01) ==
LOC: HO.LAB 12:23
PROVIDERS: Nurse Practitioner Family; PCP Physician Assistant; Visit Provider Obstetrics & Gynecology
DX: O99.280 Endocrine, nutritional and metabolic diseases complicating pregnancy, unspecified trimester (principal); O26.899 Other specified pregnancy related conditions, unspecified trimester; E28.2 Polycystic ovarian syndrome; R10.32 Left lower quadrant pain
CPT/HCPCS: 36415; 80048; 83036; 84403; 84702; 85025; 86850; 86900; 86901

== ENCOUNTER 2021-05-27 15:54 | Outpatient (REF) | payer OTHER, SELFPAY ==
[2021-05-27 16:35] LABS: HCG Quantitative 3991 mIU/mL
== END 2021-05-27 15:55 | disposition home or self-care (01) ==
LOC: HO.LAB 15:54
PROVIDERS: Visit Provider Obstetrics & Gynecology
DX: Z34.90 Encounter for supervision of normal pregnancy, unspecified, unspecified trimester (principal)
CPT/HCPCS: 36415; 84702

== ENCOUNTER 2021-05-28 10:00 | Outpatient (REF) | payer OTHER, SELFPAY ==
--- NOTE | ~2021-05-28 | US_ITS ---
EXAMINATION: US OBSTETRICAL ULTRASOUND CLINICAL INFORMATION: Encounter for supervision abnormal COMPARISON: Previous exam 05/21/2021. LMP: Unknown. Gestational age by maternal dates is Estimated date of delivery by maternal dates is . TECHNIQUE: Transabdominal and transvaginal first trimester OB ultrasound. FINDINGS: The uterus is normal in size and shape. There is an intrauterine gestational sac. Mean sac diameter measures 0.6 cm suggesting gestational age of 5 weeks 1 day. No pole or yolk sac is seen is seen. There is a nabothian cyst in the cervix. The right maternal ovary is normal and measures 3.7 x 2.2 x 2 cm. The left maternal ovary is slightly enlarged and measures 4.9 x 4.7 x 5.1 cm. There is a 3.4 x 3.6 x 4.1 cm left ovarian cyst. There is no fluid in the pelvis. US/US OB <= 14 weeks fetus IMPRESSION: Intrauterine gestational sac. Mean sac diameter suggests gestational age of 5 weeks 1 day. No pole or yolk sac seen. Enlarged left ovary and 3.4 x 3.6 x 4.1 cm simple cyst.
== END 2021-05-28 10:01 | disposition home or self-care (01) ==
LOC: HO.US 10:00
PROVIDERS: Visit Provider Obstetrics & Gynecology
DX: O34.80 Maternal care for other abnormalities of pelvic organs, unspecified trimester (principal); O46.90 Antepartum hemorrhage, unspecified, unspecified trimester; N83.202 Unspecified ovarian cyst, left side; Z87.891 Personal history of nicotine dependence
CPT/HCPCS: 76801; 99212

== ENCOUNTER 2021-05-28 12:32 | Outpatient (REF) | payer OTHER, SELFPAY ==
[2021-05-28 15:24] LABS: CT PCR NOT DETECTED (Not Detect.); NG PCR NOT DETECTED (Not Detect.)
== END 2021-05-28 12:33 | disposition home or self-care (01) ==
LOC: HO.LAB 12:32
PROVIDERS: Visit Provider Obstetrics & Gynecology
DX: N93.9 Abnormal uterine and vaginal bleeding, unspecified (principal)
CPT/HCPCS: 87491; 87591

== ENCOUNTER 2021-06-11 14:51 | Outpatient (REF) | payer OTHER, SELFPAY ==
--- NOTE | ~2021-06-11 | US_ITS ---
EXAMINATION: US OBSTETRICAL ULTRASOUND CLINICAL INFORMATION: Followup, viability. COMPARISON: None. LMP: Unknown. Gestational age by maternal dates is unknown. Estimated date of delivery by maternal dates is unknown. TECHNIQUE: Routine lion-scale transabdominal imaging of pelvis is performed. FINDINGS: There is a single intrauterine gestational sac with visible yolk sac, embryo/fetus, and cardiac activity. There is no significant subchorionic hemorrhage or hematoma. HR: 142 beats per minute. CRL (crown rump length): 0.83 cm (6 weeks and 6 days +/- 4 days). NEO (estimated date of delivery): 01/29/2022 +/- 4 days. MATERNAL ADNEXA: The right maternal ovary measures 3.5 x 2.3 x 3.2 cm. No focal lesion seen. The left maternal ovary measures 8.0 x 5.0 x 5.5 cm. There is an anechoic cyst measuring 5.0 x 3.7 x 4.7 cm. There is no significant maternal adnexal mass. No maternal pelvic ascites. Suspect small subchorionic bleed measuring 1.7 x 0.4 cm. US/US OB <= 14 weeks fetus IMPRESSION: 1. Single intrauterine gestation with ultrasound gestational age of 6 weeks and 6 days +/- 4 days. 2. Estimated date of delivery is 01/29/2022 +/- 4 days. 3. No maternal adnexal mass or pelvic ascites.
== END 2021-06-11 14:52 | disposition home or self-care (01) ==
LOC: HO.US 14:51
PROVIDERS: PCP Physician Assistant; Visit Provider Obstetrics & Gynecology
DX: Z34.90 Encounter for supervision of normal pregnancy, unspecified, unspecified trimester (principal)
CPT/HCPCS: 76801

== ENCOUNTER → 2021-06-12 12:08 | Outpatient (BNVA) | payer OTHER, SELFPAY | PROVIDERS: Visit Provider Obstetrics & Gynecology | DX: Z34.91 Encounter for supervision of normal pregnancy, unspecified, first trimester (principal); N83.209 Unspecified ovarian cyst, unspecified side | CPT/HCPCS: 99212 ==

== ENCOUNTER → 2021-06-20 13:24 | Outpatient (BNVA) | payer OTHER, SELFPAY | PROVIDERS: Visit Provider Obstetrics & Gynecology | DX: O98.511 Other viral diseases complicating pregnancy, first trimester (principal); U07.1 COVID-19; Z3A.01 Less than 8 weeks gestation of pregnancy | CPT/HCPCS: 99212 ==

== ENCOUNTER → 2021-07-03 13:54 | Outpatient (BNVA) | payer OTHER, SELFPAY | PROVIDERS: Visit Provider Obstetrics & Gynecology ==

== ENCOUNTER 2021-07-10 14:11 | Outpatient (REF) | payer OTHER, SELFPAY ==
[2021-07-10 14:48] LABS: Hematocrit 33.6 % (37.0-47.0); Hemoglobin 11.3 g/dl (12.0-16.0); Mean Corpuscular HGB Conc 33.6 g/dl (31.0-35.0); Mean Corpuscular Hemoglobin 30.8 pg (27.0-33.0); Mean Corpuscular Volume 91.6 fL (80.0-98.0); Mean Platelet Volume 8.3 fL (9.4-12.3); Platelet Count 272 X10*3/uL (160-400); Red Blood Count 3.67 X10*6/uL (4.20-5.50); Red Cell Distribution Width 12.9 % (11.0-16.0)
[2021-07-10 15:10] LABS: Alanine Aminotransferase 15 U/L (0-31); Aspartate Amino Transferase 11 U/L (5-31); Blood Urea Nitrogen 6 mg/dL (9-16); Estimated Glomerular Filt Rate > 60
[2021-07-10 15:13] LABS: Amphetamine Screen Urine Not Detected (Not Detect); Barbiturates, Urine Not Detected (Not Detect); Benzodiazepines Screen Urine Not Detected (Not Detect); Cannabinoid Screen Urine POSITIVE (Not Detect); Cocaine Screen Urine Not Detected (Not Detect); Creatinine Urine 226.44 mg/dL; Fentanyl, urine Not Detected (Not Detect); Opiate Screen Urine Not Detected (Not Detect); Phencyclidine Screen Urine Not Detected (Not Detect); Protein/Creatinine Ratio, Ur 0.05 (<0.2); Total Protein Urine Random 11 mg/dL (<12)
[2021-07-11 04:49] LABS: HIV AB/AG Nonreactive (Nonreactive); HIV Num 1 0.07 S/CO (0.00-0.99); ~HepC Num1 0.29 S/CO (0.00-0.79); ~Hepatitis C Antibody Nonreactive (Nonreactive)
[2021-07-11 04:50] LABS: HBsAGNum1 0.32 S/CO (0.00-0.99); Hepatitis B Surface Antigen Negative (Negative)
[2021-07-11 04:56] LABS: Syphilis Screen Nonreactive (Nonreactive)
== END 2021-07-10 14:12 | disposition home or self-care (01) ==
LOC: HO.LAB 14:11
PROVIDERS: PCP Physician Assistant; Visit Provider Obstetrics & Gynecology
DX: Z34.90 Encounter for supervision of normal pregnancy, unspecified, unspecified trimester (principal)
CPT/HCPCS: 80307; 82565; 84156; 84450; 84460; 84520; 84550; 84702; 85027; 86762; 86780; 86787; 86803; 86850; 86900; 86901; 87086; 87340; 87389

== ENCOUNTER → 2021-07-11 14:30 | Outpatient (BNVA) | payer OTHER, SELFPAY | PROVIDERS: Visit Provider Obstetrics & Gynecology ==

== ENCOUNTER → 2021-07-24 11:22 | Outpatient (BNVA) | payer OTHER, SELFPAY | PROVIDERS: Visit Provider Advanced Practice Midwife | DX: O34.219 Maternal care for unspecified type scar from previous cesarean delivery (principal); O99.341 Other mental disorders complicating pregnancy, first trimester; F32.A Depression, unspecified; O99.611 Diseases of the digestive system complicating pregnancy, first trimester; K21.9 Gastro-esophageal reflux disease without esophagitis; O34.81 Maternal care for other abnormalities of pelvic organs, first trimester; N83.202 Unspecified ovarian cyst, left side; Z3A.13 13 weeks gestation of pregnancy | CPT/HCPCS: 99212 ==

== ENCOUNTER 2021-07-27 13:05 | Outpatient (REF) | payer OTHER, SELFPAY ==
--- NOTE | ~2021-07-27 | US_ITS ---
EXAMINATION: OBSTETRICAL ULTRASOUND, FIRST TRIMESTER HISTORY: 26-year-old at 13.3 weeks of gestation NT screening COMPARISON: 06/11/2021 TECHNIQUE: Real time transabdominal imaging with color and M-mode Doppler. FINDINGS: A single, live IUP CRL of 78.3 mm c/w 13.6wks is noted. Heart Rate: 147 beats per minute. Normal yolk sac seen. NT was 1.6.mm. NB Present The embryo appears sonographically wnl for this GA. The left ovary is within normal limits. The right was suboptimally seen. GESTATIONAL AGE: 1. Established GA: 13.3 wks 2. GA from [facility]: 13.6 wks ESTIMATED DATE OF DELIVERY: 1. Established NEO: 01/29/2022 2. NEO from [facility]: 01/26/2022 US/US OB 1T nuc measure IMPRESSION: 1. A single live IUP 2. Size equals dates 3. NT of 1.61 mm MFM Consultation: I reviewed the ultrasound findings along with significance of NT measurement. The NT of less than 3mm is generally reassuring. However, the sensitivity for T21 detection is only 60%. I reviewed the availability of serum aneuploidy screening which includes cell-free DNA and placental protein based tests. I discussed the sensitivity, false-positive rate, and other limitations associated with each test. I also reviewed the availability of invasive diagnostic tests that are associated small but definite risk of miscarriage. We also reviewed the differences between screening tests and diagnostic tests. After our discussion, she opted for the First trimester screening that is based on cell-free DNA or non-invasive testing (NIPT). The result will be faxed to your office in approximately 7 days. A follow up at 18 weeks for survey has been scheduled. Thank you very much for this referral. Total time 30 minutes. The time spent was devoted to counseling the patient about the disease and diagnosis, coordinating care including reviewing her records, pertinent lab data and studies, as well as discussing diagnostic evaluation and workup, plan therapeutic interventions and future disposition of care. This includes any additional research needed to obtain further information in formulating the plan of care of this patient. This note was generated with a voice recognition program. Please excuse any errors which may have been overlooked during my review of this note. Sometimes these errors may affect the content or meaning of a given sentence.
== END 2021-07-27 13:06 | disposition home or self-care (01) ==
LOC: HO.US 13:05
PROVIDERS: Visit Provider Obstetrics & Gynecology
DX: Z34.91 Encounter for supervision of normal pregnancy, unspecified, first trimester (principal); Z3A.13 13 weeks gestation of pregnancy
CPT/HCPCS: 76813

== ENCOUNTER → 2021-08-16 13:13 | Outpatient (BNVA) | payer OTHER, SELFPAY | PROVIDERS: PCP Physician Assistant; Visit Provider Advanced Practice Midwife | DX: O26.892 Other specified pregnancy related conditions, second trimester (principal); R12 Heartburn; Z3A.16 16 weeks gestation of pregnancy | CPT/HCPCS: 81003; 99212 ==

== ENCOUNTER 2021-08-31 14:20 | Outpatient (REF) | payer OTHER, SELFPAY ==
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
== END 2021-08-31 14:21 | disposition home or self-care (01) ==
LOC: HO.US 14:20
PROVIDERS: Visit Provider Advanced Practice Midwife
DX: Z34.92 Encounter for supervision of normal pregnancy, unspecified, second trimester (principal)
CPT/HCPCS: 76811

== ENCOUNTER → 2021-09-21 13:44 | Outpatient (BNVA) | payer OTHER, SELFPAY | PROVIDERS: PCP Physician Assistant; Visit Provider Advanced Practice Midwife | DX: Z34.82 Encounter for supervision of other normal pregnancy, second trimester (principal); Z3A.21 21 weeks gestation of pregnancy | CPT/HCPCS: 81003; 99212 ==

== ENCOUNTER 2021-09-28 13:16 | Outpatient (REF) | payer OTHER, SELFPAY ==
--- NOTE | ~2021-09-28 | US_ITS ---
EXAMINATION: Echocardiography CLINICAL INFORMATION: 26-year-old at the 22.3 weeks of gestation Unable to obtain cardiac anatomy on survey COMPARISON: 08/31/2021 TECHNIQUE: Real-time transabdominal ultrasound was performed using C1-5 megahertz transducer. FINDINGS: There is a single, living, intrauterine in vertex position. The placenta lies anterior without previa. The amniotic fluid is within normal limits. MEASUREMENTS: 1. Biparietal Diameter: 5.34 cm; 22.2 wks 2. Occipital Frontal Diameter: 7.9 cm 3. Head Circumference: 21.5 cm; 23.4 wks 4. Abdominal Circumference: 17.9 cm; 22.6 wks 5. Femur Length: 4.2 cm; 23.4 wks 6. Heart Rate: 146 beats per minute GESTATIONAL AGE: 1. Assigned GA 22.3 wks 2. 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 Anomalous venous return ruled out. The four-chamber view showed equal sized ventricles and atria. The ventricular septum appeared intact and patent foramen ovale with right to left flow was seen. Tricuspid and mitral valves appear within normal limits as well as the pulmonary and aortic valves. The right outflow tract and in the left outflow tracts are of equal size and correct anatomic relationship. The myocardial contractility appeared within normal limits. No pericardial effusion is seen. US/US OB follow up IMPRESSION: 1. Normal, single, living, intrauterine with appropriate biometry. 2. Normal cardiac anatomy. Discussion: I reviewed today's ultrasound findings and gave her reassurance. We discussed the limitations of ultrasound in diagnosing minor valvular problems, small VSD, ASD, and coarctation of aorta. She had the 2 prior sections. The placenta is anterior and is implanted in the lower uterine segment. There is no sonographic suggestion of placenta accreta. She is scheduled for follow-up in approximately 7 weeks for growth and evaluation of the placenta. Thank you for allowing me to participate in her care. Visiting time 20 minutes. Majority of this visit was spent reviewing and discussing her care.
== END 2021-09-28 13:17 | disposition home or self-care (01) ==
LOC: HO.US 13:16
PROVIDERS: Visit Provider Advanced Practice Midwife
DX: Z34.92 Encounter for supervision of normal pregnancy, unspecified, second trimester (principal); Z36.89 Encounter for other specified antenatal screening; Z3A.22 22 weeks gestation of pregnancy
CPT/HCPCS: 76816

== ENCOUNTER → 2021-10-23 14:34 | Outpatient (BNVA) | payer OTHER, SELFPAY | PROVIDERS: PCP Physician Assistant; Visit Provider Advanced Practice Midwife | DX: O34.219 Maternal care for unspecified type scar from previous cesarean delivery (principal); O99.342 Other mental disorders complicating pregnancy, second trimester; F41.8 Other specified anxiety disorders; O99.612 Diseases of the digestive system complicating pregnancy, second trimester; K21.9 Gastro-esophageal reflux disease without esophagitis; O34.82 Maternal care for other abnormalities of pelvic organs, second trimester; N83.292 Other ovarian cyst, left side; O99.322 Drug use complicating pregnancy, second trimester; F12.90 Cannabis use, unspecified, uncomplicated; Z3A.26 26 weeks gestation of pregnancy | CPT/HCPCS: 99212 ==

== ENCOUNTER 2021-11-02 12:43 | Outpatient (REF) | payer OTHER, SELFPAY ==
--- NOTE | ~2021-11-02 | US_ITS ---
EXAMINATION: OBSTETRICAL ULTRASOUND, Follow up HISTORY: 26-year-old at the 27.3 weeks of gestation Size date discrepancy High BMI COMPARISON: 09/28/2021 TECHNIQUE: Real time transabdominal imaging with color and M-mode Doppler. PRESENTATION: Vertex PLACENTA LOCATION: Anterior AMNIOTIC FLUID: BRIAN 12.7 cm MEASUREMENTS: 1. Biparietal Diameter: 6.8 cm; 27.4 wks 2. Head Circumference: 27.2 cm; 29.5 wks 3. Abdominal Circumference: 24.4 cm; 28.5 wks 4. Femur Length: 5.4 cm; 28.5 wks 5. Heart Rate: 127 beats per minute WEIGHT: EFW: 1265 grams (2 lbs 13 oz) -- 85 %. BIOPHYSICAL PROFILE: Motion: 2 Tone: 2 Breathin Amniotic Fluid: 2 Total score: 8/8 GESTATIONAL AGE: 1. Established GA: 27.3 wks 2. GA from AUA: 28.5 wks ESTIMATED DATE OF DELIVERY: 1. Established NEO: 01/29/2022 2. NEO from AUA: 01/20/2022 US/US OB follow up IMPRESSION: 1. A single active fetus is in vertex presentation 2. Size equals dates 3. Normal BRIAN and BPP score I reviewed today's findings and discussed the limitations of ultrasound and estimating weights. She had the one hour GLT yesterday. The result is still pending. No further follow-up ultrasound scheduled. Thank you very much for this referral. Total time 20 minutes. The time spent was devoted to counseling the patient about the disease and diagnosis, coordinating care including reviewing her records, pertinent lab data and studies, as well as discussing diagnostic evaluation and workup, plan therapeutic interventions and future disposition of care. This includes any additional research needed to obtain further information in formulating the plan of care of this patient. This note was generated with a voice recognition program. Please excuse any errors which may have been overlooked during my review of this note. Sometimes these errors may affect the content or meaning of a given sentence.
== END 2021-11-02 12:44 | disposition home or self-care (01) ==
LOC: HO.US 12:43
PROVIDERS: Visit Provider Obstetrics & Gynecology
DX: Z34.92 Encounter for supervision of normal pregnancy, unspecified, second trimester (principal); Z3A.27 27 weeks gestation of pregnancy
CPT/HCPCS: 76816

== ENCOUNTER → 2022-07-18 10:21 | Outpatient (BNVA) | payer OTHER, SELFPAY | PROVIDERS: PCP Physician Assistant; Visit Provider Obstetrics & Gynecology | DX: Z01.419 Encounter for gynecological examination (general) (routine) without abnormal findings (principal); N91.2 Amenorrhea, unspecified | CPT/HCPCS: 99212 ==

== ENCOUNTER 2022-10-23 17:26 | Emergency (ER) | payer OTHER, SELFPAY ==
[2022-10-23 17:57] VITALS: BP 103/68; PULSE 64; RESP 18; TEMP 36.6; O2SAT 98; BMI 31.6
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
== END 2022-10-23 22:51 | disposition left against medical advice (07) ==
LOC: HO.ED 22:41
PROVIDERS: Emergency Provider Emergency Medicine; PCP Physician Assistant
DX: R10.30 Lower abdominal pain, unspecified (principal); N93.9 Abnormal uterine and vaginal bleeding, unspecified
CPT/HCPCS: 99281

== ENCOUNTER 2023-07-15 20:02 | Emergency (ER) | payer OTHER, SELFPAY | END 2023-07-15 21:44 | disposition left against medical advice (07) | PROVIDERS: Emergency Provider Emergency Medicine; PCP Physician Assistant | DX: M79.10 Myalgia, unspecified site (principal); Z53.21 Procedure and treatment not carried out due to patient leaving prior to being seen by health care provider ==